=== PATIENT | male | born 1965 | race American Indian/Alaskan Native ===

== ENCOUNTER 2020-05-04 21:38 | Inpatient (IN) | payer OTHER ==
[2020-05-04 22:11] LABS: Basophils % (Auto) 0.3 % (0.0-1.8); Hematocrit 36.8 % (35.5-45.6); Hemoglobin 12.3 gm/dl (11.8-15.2); Lymphocytes # (Auto) 0.7 K/mm3 (1.2-5.4); Lymphocytes % (Auto) 7.2 % (13.4-35.0); Mean Corpuscular HGB Conc 33 % (32-34); Mean Corpuscular Volume 79 fl (84-94); Monocytes # (Auto) 0.2 K/mm3 (0.0-0.8); Monocytes % (Auto) 2.5 % (0.0-7.3); Platelet Count 216 K/mm3 (140-440); Red Blood Count 4.68 M/mm3 (3.65-5.03); Red Cell Distribution Width 13.1 % (13.2-15.2)
[2020-05-04 22:31] LABS: BUN/Creatinine Ratio 10; Blood Urea Nitrogen 11 mg/dL (9-20); Calcium 9.1 mg/dL (8.4-10.2); Hemolysis Index 3
--- NOTE | 2020-05-04 22:53 | XRay Report ---
CHEST 1 VIEW INDICATION / CLINICAL INFORMATION: MAIN. COMPARISON: None available. FINDINGS: SUPPORT DEVICES: None. HEART / MEDIASTINUM: No significant abnormality. LUNGS / PLEURA: Bibasilar subsegmental atelectasis No pneumothorax. ADDITIONAL FINDINGS: No significant additional findings. IMPRESSION: Bibasilar subsegmental atelectasis Signer Name: Silvestre Méndez MD FACNilsa Signed: 05/04/2020 10:49 PM Workstation Name: [id number]
[2020-05-05] MEDS ORDERED: ONDANSETRON 4 MG ODT TAB PO ONE (11:32)
--- NOTE | 2020-05-05 11:42 | Emergency Department Report ---
ED Chest Pain HPI - General Chief Complaint: Chest Pain Stated Complaint: CHEST PAIN, SHORTNESS OF BREATH Time Seen by Provider: 05/05/20 11:19 Source: patient Mode of arrival: Ambulatory Limitations: No Limitations - History of Present Illness Initial Comments: This is a 55-year-old male who presents to the emergency department with a complaint of a 3-day history of some generalized chest discomfort, body aches, low-grade fever and shortness of breath. This is also associated with some nausea and vomiting. The patient also had a previous headache that has since resolved. He denies any past medical history. He denies any tobacco or illicit drug use. No recent travel or sick contacts at home. No known exposure to anyone with Covid 19. He denies any diarrhea, constipation, lower extremity swelling, rash or lesions. He has not taken anything for symptoms prior to presentation today. - Related Data Allergies Allergy/AdvReac Type Severity Reaction Status Date / Time No Known Allergies Allergy Unverified 05/04/20 21:51 Heart Score - HEART Score History: Slightly suspicious EKG: Normal Age: 45-65 Risk factors: No known risk factors Troponin: < normal limit HEART Score: 1 - Critical Actions Critical Actions: 0-3 pts:0.9-1.7%risk of adverse cardiac event.Candidate for discharge ED Review of Systems ROS: Stated complaint: CHEST PAIN, SHORTNESS OF BREATH Other details as noted in HPI Comment: All other systems reviewed and negative Constitutional: fever. denies: malaise Eyes: denies: eye pain, vision change ENT: denies: ear pain, congestion Respiratory: cough, shortness of breath Cardiovascular: chest pain. denies: edema Gastrointestinal: abdominal pain, nausea, vomiting. denies: diarrhea, constipation Genitourinary: denies: dysuria, discharge Musculoskeletal: back pain, myalgia. denies: joint swelling Skin: denies: rash, lesions Neurological: headache. denies: weakness, numbness, paresthesias ED Physical Exam - General Limitations: No Limitations - Other Other exam information: GENERAL: The patient is well-developed well-nourished. HENT: Normocephalic. Atraumatic. Patient has moist mucous membranes. EYES: Extraocular motions are intact. NECK: Supple. Trachea is midline. CHEST/LUNGS: There is some mild tachypnea but no accessory muscle use. There is no respiratory distress noted. HEART/CARDIOVASCULAR: Regular. There is no tachycardia. There is no murmur. ABDOMEN: Abdomen is soft, nontender. There is no abdominal distention. SKIN: Skin is warm and dry. NEURO: The patient is awake, alert, and oriented. The patient is cooperative. The patient has no focal neurologic deficits. Normal speech. Cranial nerves II through XII grossly intact. MUSCULOSKELETAL: There is no tenderness or deformity. There is no evidence of acute injury. ED Course Vital Signs 05/04/20 21:48 Temperature 100.2 F H Pulse Rate 100 H Respiratory 17 Rate Blood Pressure 150/77 O2 Sat by Pulse 95 Oximetry - Consultations Consultation #1: 05/05/20 13:41 The patient was ambulated with a portable pulse ox around the emergency department and his oxygen saturation dropped down to 91% and the patient had increased work of breathing. We will seek admission for suspected Covid 19. PRISCILLA score - Priscilla Score Age > 65: (0) No Aspirin use within the Past 7 Days: (0) No 3 or more CAD Risk Factors: (0) No 2 or more Angina events in past 24 hrs: (1) Yes Known CAD with more than 50% Stenosis: (0) No Elevated Cardiac Markers: (0) No ST Deviation Greater than 0.5mm: (0) No PRISCILLA Score: 1 ED Medical Decision Making - Lab Data Result diagrams: 05/04/20 22:00 05/04/20 22:00 - EKG Data -: EKG Interpreted by Me EKG shows normal: sinus rhythm, axis, intervals, QRS complexes, ST-T waves Rate: normal - EKG Data When compared to previous EKG there are: previous EKG unavailable Interpretation: normal EKG - Radiology Data Radiology results: image reviewed interpreted by me: Chest x-ray shows some mild patchy infiltrates to the bilateral bases. No cardiomegaly. No pleural effusions. No pneumothorax. Abdominal x-ray shows nonspecific nonobstructive bowel gas. - Medical Decision Making This patient presents with some shortness of breath, coughing, abdominal discomf ort, chest discomfort, low-grade fevers and a previous headache that is since resolved. Chest x-ray shows some patchy areas to the bilateral bases that could be developing pneumonia. Initially the patient was 95% on room air but desaturated to about 90 - 91% with ambulation/exertion. Patient has multiple elevated inflammatory markers such as d-dimer, CRP, LDH. All this together appears concerning for or suspicious for Covid 19. The patient has been placed in droplet precautions and patient isolation since he was brought back to the main emergency department. He has received antiemetics, IV antibiotics, acetaminophen and IV Decadron. The patient was placed in patient isolation and droplet precautions immediately upon arrival to the main emergency department. I wore full PPE gear including a surgical hat, goggles, N95 mask, surgical mask, gown, and double gloves for every encounter. Critical Care Time: No Critical care attestation.: If time is entered above; I have spent that time in minutes in the direct care of this critically ill patient, excluding procedure time. ED Disposition Clinical Impression: Suspected 2019 novel coronavirus infection Dyspnea Qualifiers: Dyspnea type: shortness of breath Qualified Code(s): R06.02 - Shortness of breath; R06.00 - Dyspnea, unspecified; R06.01 - Orthopnea Hypertension Qualifiers: Hypertension type: essential hypertension Qualified Code(s): I10 - Essential (primary) hypertension Chest pain Qualifiers: Chest pain type: unspecified Qualified Code(s): R07.9 - Chest pain, unspecified Nausea & vomiting Qualifiers: Vomiting type: unspecified Vomiting Intractability: non-intractable Qualified Code(s): R11.2 - Nausea with vomiting, unspecified Disposition: 09 OP ADMIT IP TO THIS HOSP Is pt being admited?: Yes Condition: Fair Time of Disposition: 14:46
--- NOTE | 2020-05-05 13:05 | XRay Report ---
ABDOMEN 2 VIEWS INDICATION / CLINICAL INFORMATION: Abd pain. COMPARISON: None available. FINDINGS: TUBES / LINES: None. BOWEL GAS PATTERN: No significant abnormality. FREE AIR / EXTRALUMINAL GAS: None seen. ADDITIONAL FINDINGS: No significant additional findings. CHEST: Lung bases show no acute abnormality. IMPRESSION: 1. No acute findings. Signer Name: Hayley Chapa MD Signed: 05/05/2020 1:01 PM Workstation Name: [id number]
[2020-05-05] MEDS ORDERED: cefTRIAXone/NS 1 GM/50 ML 1 GM/50 ML BAG IV ONE (13:38)
[2020-05-05] MEDS ORDERED: dexAMETHasone 4 MG/ML VIAL IV ONE (13:39)
[2020-05-05] MEDS ORDERED: AZITHROMYCIN 500 MG in SODIUM CHLORIDE 0.9% 250ML 250 ML IV ONE (13:39)
[2020-05-05] MEDS ORDERED: ACETAMINOPHEN 325 MG TAB PO ONE (14:46)
[2020-05-05 14:53] LABS: C-Reactive Protein 35.9 mg/dL (0.00-1.30)
[2020-05-05] MEDS ORDERED: ACETAMINOPHEN 325 MG TAB ONE (15:28)
[2020-05-05] MEDS ORDERED: HYDROmorphone 1 MG/1 ML INJ IV PRN (21:33)
[2020-05-05] MEDS ORDERED: HYDROmorphone 1 MG/1 ML INJ ONE (21:40)
--- NOTE | 2020-05-05 23:32 | History and Physical Report ---
History of Present Illness Date of examination: 05/05/20 Date of admission: 05/05/20 14:46 Chief complaint: Fever body aches shortness of breath and chest discomfort for 3 days. History of present illness: 55-year-old male, with no significant past medical history comes in for 3-day history of generalized chest discomfort low-grade fever shortness of breath and body aches. There is also history with some nausea and vomiting. Also has had a previous headache. No known exposure to COVID 19. Review of Systems ROS: Stated complaint: CHEST PAIN, SHORTNESS OF BREATH Other details as noted in HPI Comment: All other systems reviewed and negative Constitutional: fever. denies: malaise Eyes: denies: eye pain, vision change ENT: denies: ear pain, congestion Respiratory: cough, shortness of breath Cardiovascular: chest pain. denies: edema Gastrointestinal: abdominal pain, nausea, vomiting. denies: diarrhea, constipation Genitourinary: denies: dysuria, discharge Musculoskeletal: back pain, myalgia. denies: joint swelling Skin: denies: rash, lesions Neurological: headache. denies: weakness, numbness, paresthesias Past History Past Medical History: No medical history Past Surgical History: No surgical history Social history: no significant social history, lives with family, full code Family history: hypertension Medications and Allergies Allergies Allergy/AdvReac Type Severity Reaction Status Date / Time No Known Allergies Allergy Unverified 05/04/20 21:51 Home Medications Medication Instructions Recorded Confirmed Last Taken Type No Known Home Medications [No 05/05/20 05/05/20 Unknown History Reported Home Medications] Active Meds: Active Medications Hydromorphone HCl (Dilaudid) 0.5 mg IV Q3H PRN PRN Reason: Pain , Severe (7-10) Last Admin: 05/05/20 21:45 Dose: 0.5 mg Documented by: Exam - Constitutional Vitals: Temp Pulse Resp BP Pulse Ox 97.5 F L 44 L 20 119/69 91 05/05/20 22:33 05/05/20 22:16 05/05/20 22:16 05/05/20 22:16 05/05/20 22:16 General appearance: Present: no acute distress, well-nourished - EENT Eyes: Present: PERRL ENT: hearing intact, clear oral mucosa - Neck Neck: Present: supple, normal ROM - Respiratory Respiratory effort: normal Respiratory: bilateral: CTA - Cardiovascular Heart rate: 78 Rhythm: regular Heart Sounds: Present: S1 & S2. Absent: rub, click - Extremities Extremities: no ischemia, pulses intact, pulses symmetrical, No edema Peripheral Pulses: within normal limits - Abdominal General gastrointestinal: Present: soft, non-tender, non-distended, normal bowel sounds Male genitourinary: Present: normal - Rectal Rectal Exam: deferred - Integumentary Integumentary: Present: clear, warm, dry - Musculoskeletal Musculoskeletal: gait normal, strength equal bilaterally - Psychiatric Psychiatric: appropriate mood/affect, intact judgment & insight - Neurologic Neurologic: CNII-XII intact, moves all extremities - Allied Health Allied health notes reviewed: nursing, case management HEART Score - HEART Score EKG: Normal Age: 45-65 Risk factors: No known risk factors Troponin: Troponin T < 0.010 ng/mL (0.00-0.029) 05/05/20 03:54 Troponin: < normal limit - Critical Actions Critical Actions: 0-3 pts:0.9-1.7%risk of adverse cardiac event.Candidate for discharge Results - Labs CBC & Chem 7: 05/06/20 07:05 05/06/20 07:05 Labs: Laboratory Last Values WBC 9.4 K/mm3 (4.5-11.0) 05/04/20 22:00 RBC 4.68 M/mm3 (3.65-5.03) 05/04/20 22:00 Hgb 12.3 gm/dl (11.8-15.2) 05/04/20 22:00 Hct 36.8 % (35.5-45.6) 05/04/20 22:00 MCV 79 fl (84-94) L 05/04/20 22:00 MCH 26 pg (28-32) L 05/04/20 22:00 MCHC 33 % (32-34) 05/04/20 22:00 RDW 13.1 % (13.2-15.2) L 05/04/20 22:00 Plt Count 216 K/mm3 (140-440) 05/04/20 22:00 Lymph % (Auto) 7.2 % (13.4-35.0) L 05/04/20 22:00 [place] % (Auto) 2.5 % (0.0-7.3) 05/04/20 22:00 Eos % (Auto) 0.0 % (0.0-4.3) 05/04/20 22:00 Baso % (Auto) 0.3 % (0.0-1.8) 05/04/20 22:00 Lymph # 0.7 K/mm3 (1.2-5.4) L 05/04/20 22:00 [place] # 0.2 K/mm3 (0.0-0.8) 05/04/20 22:00 Eos # 0.0 K/mm3 (0.0-0.4) 05/04/20 22:00 Baso # 0.0 K/mm3 (0.0-0.1) 05/04/20 22:00 Seg Neutrophils % 90.0 % (40.0-70.0) H 05/04/20 22:00 Seg Neutrophils # 8.4 K/mm3 (1.8-7.7) H 05/04/20 22:00 D-Dimer 500.99 ng/mlDDU (0-234) H 05/05/20 13:49 Sodium 138 mmol/L (137-145) 05/04/20 22:00 Potassium 3.8 mmol/L (3.6-5.0) 05/04/20 22:00 Chloride 98.1 mmol/L (98-107) 05/04/20 22:00 Carbon Dioxide 22 mmol/L (22-30) 05/04/20 22:00 Anion Gap 22 mmol/L 05/04/20 22:00 BUN 11 mg/dL (9-20) 05/04/20 22:00 Creatinine 1.1 mg/dL (0.8-1.3) 05/04/20 22:00 Estimated GFR > 60 ml/min 05/04/20 22:00 BUN/Creatinine Ratio 10 % 05/04/20 22:00 Glucose 101 mg/dL (75-100) H 05/04/20 22:00 Calcium 9.1 mg/dL (8.4-10.2) 05/04/20 22:00 Ferritin 2481.0 ng/mL (30.0-300.0) H 05/05/20 13:49 Lactate Dehydrogenase 511 units/L (91-180) H 05/05/20 13:49 Troponin T < 0.010 ng/mL (0.00-0.029) 05/05/20 03:54 C-Reactive Protein 35.90 mg/dL (0.00-1.30) H 05/05/20 13:49 Procalcitonin 0.40 ng/mL (<0.15) 05/05/20 13:49 Cardiac Enzymes 05/05/20 05/05/20 Range/Units 00:50 03:54 Troponin T < 0.010 < 0.010 (0.00-0.029) ng/mL Microbiology: Microbiology 05/05/20 13:49 Peripheral/Venous Blood Culture - Preliminary Culture in Progress 05/05/20 13:49 Peripheral/Venous Blood Culture - Preliminary Culture in Progress - Imaging and Cardiology Chest x-ray: report reviewed Imaging and Cardiology: Chest x-ray Bibasilar subsegmental atelectasis Abdominal x-ray No acute findings [place]/IV: IV Catheter Type [Right Hand] INT / Saline Lock Assessment and Plan Advance Directives: Yes (Full code) VTE prophylaxis?: Chemical Plan of care discussed with patient/family: Yes - Patient Problems (1) Chest pain Current Visit: Yes Status: Acute Qualifiers: Chest pain type: unspecified Qualified Code(s): R07.9 - Chest pain, unspecified Plan to address problem: Serial troponins Atypical chest pain (2) Suspected 2019 novel coronavirus infection Current Visit: Yes Status: Acute Plan to address problem: Coronavirus PCR ordered IV Decadron if necessary (3) Bilateral pneumonia Current Visit: Yes Status: Acute Plan to address problem: Patient initiated on IV Zithromax and IV Rocephin (4) Elevated d-dimer Current Visit: Yes Status: Acute Plan to address problem: Patient initiated on Lovenox weight-based twice a day (5) DVT prophylaxis Current Visit: Yes Status: Acute Plan to address problem: Patient on Lovenox
[2020-05-05] MEDS ORDERED: dexAMETHasone 4 MG/ML VIAL IV SCH (23:45)
[2020-05-05] MEDS ORDERED: ONDANSETRON 4 MG/2 ML INJ IV PRN (23:49)
[2020-05-05] MEDS ORDERED: ACETAMINOPHEN 325 MG TAB PO PRN (23:49)
[2020-05-05] MEDS: ENOXAPARIN 40 MG/0.4 ML INJ SUB-Q SCH (23:55)
[2020-05-06] MEDS: oxyCODONE /ACETAMINOPHEN 5-325MG TAB PO PRN ×2 (05:54→21:36)
[2020-05-06 08:20] LABS: Basophils % (Auto) 0.1 % (0.0-1.8); Hematocrit 41.4 % (35.5-45.6); Hemoglobin 13.4 gm/dl (11.8-15.2); Lymphocytes # (Auto) 0.6 K/mm3 (1.2-5.4); Mean Corpuscular HGB Conc 32 % (32-34); Mean Corpuscular Volume 79 fl (84-94); Monocytes # (Auto) 0.4 K/mm3 (0.0-0.8); Platelet Count 317 K/mm3 (140-440); Red Blood Count 5.24 M/mm3 (3.65-5.03); Red Cell Distribution Width 13.4 % (13.2-15.2)
[2020-05-06 08:40] LABS: Alanine Aminotransferase 61 units/L (7-56); Albumin 3.1 g/dL (3.9-5); BUN/Creatinine Ratio 15; Blood Urea Nitrogen 17 mg/dL (9-20); Calcium 8.9 mg/dL (8.4-10.2); Hemolysis Index 0
[2020-05-06] MEDS: ENOXAPARIN 40 MG/0.4 ML INJ SUB-Q SCH ×2 (11:07→23:28)
[2020-05-06] MEDS: cefTRIAXone/NS 2 GM/100 ML 2 GM/100 ML BAG IV SCH (11:08)
[2020-05-06] MEDS: FAMOTIDINE 20 MG TAB PO SCH ×2 (11:09→21:36)
[2020-05-06] MEDS ORDERED: AZITHROMYCIN 500 MG in SODIUM CHLORIDE 0.9% 250ML 250 ML IV SCH (15:00)
[2020-05-06] MEDS: DEXAMETHASONE 4 MG TAB PO SCH (15:47)
[2020-05-07] MEDS: oxyCODONE /ACETAMINOPHEN 5-325MG TAB PO PRN (06:22)
[2020-05-07] MEDS ORDERED: AZITHROMYCIN 250 MG TAB PO SCH (10:00)
[2020-05-07] MEDS: cefTRIAXone/NS 2 GM/100 ML 2 GM/100 ML BAG IV SCH (10:11)
[2020-05-07] MEDS: DEXAMETHASONE 4 MG TAB PO SCH (10:11)
[2020-05-07] MEDS: FAMOTIDINE 20 MG TAB PO SCH (10:12)
[2020-05-07] MEDS: ENOXAPARIN 40 MG/0.4 ML INJ SUB-Q SCH (11:00)
[2020-05-07] MEDS ORDERED: ENOXAPARIN 80 MG/0.8 ML INJ SUB-Q SCH (12:00)
[2020-05-07 16:38] VITALS: BP 117/73
--- NOTE | 2020-05-07 17:59 | Progress Note ---
Assessment and Plan - Patient Problems (1) Chest pain Current Visit: Yes Status: Acute Qualifiers: Chest pain type: unspecified Qualified Code(s): R07.9 - Chest pain, unspecified Plan to address problem: Serial troponins negative Atypical chest pain (2) Suspected 2019 novel coronavirus infection Current Visit: Yes Status: Acute Plan to address problem: Coronavirus PCR positive IV Decadron ordered (3) Bilateral pneumonia Current Visit: Yes Status: Acute Plan to address problem: Continue IV Zithromax and IV Rocephin (4) Elevated d-dimer Current Visit: Yes Status: Acute Plan to address problem: Patient initiated on Lovenox weight-based twice a day Continue the same (5) DVT prophylaxis Current Visit: Yes Status: Acute Plan to address problem: Patient on Lovenox Subjective Date of service: 05/06/20 Principal diagnosis: Pneumonia secondary to coronavirus Interval history: 55-year-old male, with no significant past medical history comes in for 3-day history of generalized chest discomfort low-grade fever shortness of breath and body aches. There is also history with some nausea and vomiting. Also has had a previous headache. No known exposure to COVID 19. Objective - Constitutional Vitals: Vital Signs - 12hr 05/07/20 05/07/20 11:07 16:19 Temperature 97.7 F 97.0 F L Pulse Rate 51 L 57 L Respiratory 18 18 Rate Blood Pressure 115/75 117/73 O2 Sat by Pulse 100 95 Oximetry General appearance: Present: no acute distress, well-nourished - EENT Eyes: PERRL, EOM intact ENT: hearing intact, clear oral mucosa Ears: bilateral: normal - Neck Neck: supple, normal ROM - Respiratory Respiratory effort: normal Respiratory: bilateral: CTA - Breasts Breasts: normal - Cardiovascular Heart rate: 78 Rhythm: regular Heart Sounds: Present: S1 & S2. Absent: gallop, rub Extremities: no ischemia, pulses intact, No edema, normal color, Full ROM - Gastrointestinal General gastrointestinal: Present: soft, non-tender, non-distended, normal bowel sounds - Genitourinary Male genitourinary: deferred, normal - Integumentary Integumentary: clear, warm, dry - Musculoskeletal Musculoskeletal: 1, strength equal bilaterally - Neurologic Neurologic: moves all extremities - Psychiatric Psychiatric: memory intact, appropriate mood/affect, intact judgment & insight - Allied health notes Allied health notes reviewed: nursing, case management - Labs CBC & Chem 7: 05/06/20 07:05 05/06/20 07:05 HEART Score - HEART Score EKG: Normal Age: 45-65 Risk factors: No known risk factors Troponin: Troponin T < 0.010 ng/mL (0.00-0.029) 05/05/20 03:54 Troponin: < normal limit - Critical Actions Critical Actions: 0-3 pts:0.9-1.7%risk of adverse cardiac event.Candidate for discharge
--- NOTE | 2020-05-07 18:13 | Discharge Summary ---
Providers - Providers Date of Admission: 05/07/20 11:14 Date of discharge: 05/07/20 Attending physician: PIO BO Primary care physician: [employer] Hospitalization Condition: Fair Hospital course: Subjective Date of service: 05/07/20 Principal diagnosis: Pneumonia secondary to coronavirus Interval history: 55-year-old male, with no significant past medical history comes in for 3-day history of generalized chest discomfort low-grade fever shortness of breath and body aches. There is also history with some nausea and vomiting. Also has had a previous headache. No known exposure to COVID 19. Patient did well with supplemental oxygen and then on room air. Ambulatory sats were 94% there was no hypoxia Patient to be discharged on oral Decadron for 10 days and to quarantine himself for 2 weeks. COVID follow-up literature to be given to the patient. Assessment and Plan - Patient Problems (1) Chest pain Current Visit: Yes Status: Acute Qualifiers: Chest pain type: unspecified Qualified Code(s): R07.9 - Chest pain, unspecified Plan to address problem: Serial troponins negative Atypical chest pain No stress test or Lexiscan. (2) Suspected 2019 novel coronavirus infection Current Visit: Yes Status: Acute Plan to address problem: Coronavirus PCR positive Patient to be discharged on oral Decadron. (3) Bilateral pneumonia Current Visit: Yes Status: Acute Plan to address problem: No need for antibiotics anymore (4) Elevated d-dimer Current Visit: Yes Status: Acute Plan to address problem: Patient initiated on Lovenox weight-based twice a day Continue the same (5) DVT prophylaxis Current Visit: Yes Status: Acute Plan to address problem: No need for Eliquis - Discharge Diagnoses (1) Chest pain Status: Acute Qualifiers: Chest pain type: unspecified Qualified Code(s): R07.9 - Chest pain, unspecified (2) Suspected 2019 novel coronavirus infection Status: Acute (3) Bilateral pneumonia Status: Acute (4) Elevated d-dimer Status: Acute (5) DVT prophylaxis Status: Acute Core Measure Documentation - Palliative Care Palliative Care/ Comfort Measures: Not Applicable - Core Measures Any of the following diagnoses?: none Exam - Constitutional Vitals: Temp Pulse Resp BP Pulse Ox 97.0 F L 57 L 18 117/73 95 05/07/20 16:19 05/07/20 16:19 05/07/20 16:19 05/07/20 16:19 05/07/20 16:19 General appearance: Present: no acute distress, well-nourished - EENT Eyes: Present: PERRL ENT: hearing intact, clear oral mucosa - Neck Neck: Present: supple, normal ROM - Respiratory Respiratory effort: normal Respiratory: bilateral: CTA - Cardiovascular Heart rate: 78 Rhythm: regular Heart Sounds: Present: S1 & S2. Absent: rub, click - Extremities Extremities: pulses symmetrical, No edema Peripheral Pulses: within normal limits - Abdominal General gastrointestinal: Present: soft, non-tender, non-distended, normal bowel sounds Male genitourinary: Present: normal - Integumentary Integumentary: Present: clear, warm, dry - Musculoskeletal Musculoskeletal: gait normal, strength equal bilaterally - Psychiatric Psychiatric: appropriate mood/affect, intact judgment & insight - Neurologic Neurologic: CNII-XII intact, moves all extremities - Allied Health Allied health notes reviewed: nursing, case management Plan Activity: no restrictions Diet: regular Follow up with: PRIMARY CAREMD [Primary Care Provider] - 3-5 Days
== END 2020-05-07 21:30 | disposition home or self-care (01) | DRG 177 ==
LOC: ED 21:38 → 3A 05-05 14:46 → OBSVTOIN 05-07 11:14
PROVIDERS: ADMIT Internal Medicine; ATTEND Internal Medicine
DX: U07.1 COVID-19 (principal); J12.89 Other viral pneumonia; J98.11 Atelectasis; R79.1 Abnormal coagulation profile; I10 Essential (primary) hypertension; Z82.49 Family history of ischemic heart disease and other diseases of the circulatory system
CPT/HCPCS: 36415; 71045; 74019; 80048; 80053; 82728; 83036; 83615; 84145; 84484; 85025; 85379; 86140; 87040; 93005; G0378; J0456; J0696; J1100; J1170; J1650; J7050; J8540; U0003-CS